=== PATIENT | female | born 1950 | race Caucasian/White ===

== ENCOUNTER 2022-12-16 13:36 | Inpatient (IN) | payer MEDICARE, OTHER ==
[~2022-12-16] VITALS: Ht 165.1 cm; Wt 35.4 kg
--- NOTE | 2022-12-16 13:40 | NUR ---
RECIEVED pt 72 yrs female transfer from [facility] and refused to eat
--- NOTE | 2022-12-16 14:10 | NUR ---
inserted ango catheter g 16 on lt upper arm blood drow and sent to lab
--- NOTE | 2022-12-16 14:23 | NUR ---
submitted move sheet
[2022-12-16] MEDS ORDERED: DONE5TAB34 PO (14:25)
[2022-12-16] MEDS ORDERED: BENZ1TAB7 PO (14:25)
[2022-12-16] MEDS ORDERED: MAGN400O6 PO (14:25)
[2022-12-16] MEDS ORDERED: ACET-868 PO (14:25)
[2022-12-16] MEDS ORDERED: CHOL100043 PO (14:25)
[2022-12-16] MEDS ORDERED: CARB1TAB21 PO (14:25)
[2022-12-16] MEDS ORDERED: THIA100T74 PO (14:25)
[2022-12-16] MEDS ORDERED: RISP0.2515 PO (14:25)
[2022-12-16] MEDS ORDERED: TRIA15OI2 TP (14:25)
[2022-12-16] MEDS ORDERED: DOCU-141 PO (14:25)
[2022-12-16] MEDS ORDERED: MULT-447 PO (14:25)
[2022-12-16] MEDS ORDERED: CLON0.1T PO (14:25)
[2022-12-16] MEDS ORDERED: AMIN30LI2 PO (14:25)
[2022-12-16] MEDS ORDERED: NA P133E RC (14:25)
[2022-12-16] MEDS ORDERED: BISA10SU11 RC (14:25)
--- NOTE | 2022-12-16 14:25 | NUR ---
COVED SWAB SENT TO LAB
--- NOTE | 2022-12-16 14:36 | NUR ---
PAGED EPIC [employer] FORM
[2022-12-16 14:43] LABS: BASOPHILS # (AUTO) 0.1 K/uL (0.0-0.2); BASOPHILS % (AUTO) 0.8 % (0.0-2.0); EOSINOPHILS % (AUTO) 1.8 % (0.0-6.0); HEMATOCRIT 30 % (33-45); HEMOGLOBIN 9.2 g/dL (11.5-14.8); LYMPHOCYTES # (AUTO) 2.1 K/uL (0.8-4.8); LYMPHOCYTES % (AUTO) 31.2 % (20.0-44.0); MEAN CORPUSCULAR HGB CONC 31 g/dl (31.0-36.0); MEAN CORPUSCULAR VOLUME 71 fL (82-100); MONOCYTES # (AUTO) 0.5 K/uL (0.1-1.30); MONOCYTES % (AUTO) 7.6 % (2.0-12.0); NEUTROPHILS # (AUTO) 3.9 K/uL (1.8-8.9); NEUTROPHILS % (AUTO) 58.6 % (43.0-81.0); PLATELET COUNT (AUTO) 564 K/uL (150-450); RED BLOOD CELL COUNT(AUTO) 4.15 MIL/uL (4.0-5.2); WHITE BLOOD COUNT (AUTO) 6.7 K/uL (4.3-11.0)
[2022-12-16 14:46] LABS: CALCIUM, SERUM 8.4 mg/dL (8.5-10.1); CARBON DIOXIDE 27 mmol/L (21-32); CHLORIDE 104 mmol/L (98-107); CREATININE 0.5 mg/dL (0.6-1.3); GLUCOSE 117 mg/dL (74-106); POTASSIUM 3.6 mmol/L (3.5-5.1); SODIUM SERUM 139 mmol/L (136-145); UREA NITROGEN, BLOOD 17 mg/dL (7-18)
--- NOTE | 2022-12-16 15:22 | NUR ---
RESTING AND COMFORTABLE AT THIS TIME
--- NOTE | 2022-12-16 16:04 | NUR ---
PAGED [employer]
[2022-12-16 16:13] LABS: LYMPHOCYTES % (MANUAL) 26 % (16-48); MONOCYTES % (MANUAL) 7 % (0-11.0); NEUTROPHILS % (MANUAL) 67 (42-76)
--- NOTE | 2022-12-16 16:38 | NUR ---
Wating for medICALE floor bed
--- NOTE | 2022-12-16 16:46 | NUR ---
ROOM 309-2
--- NOTE | 2022-12-16 16:50 | NUR ---
REPORT GIVEN TO NURSE JESUS FOR GINA
[2022-12-16] MEDS ORDERED: ONDANSETRON HCL/PF 4 MG/2 ML VIAL IVP PRN (17:30)
[2022-12-16] MEDS: ENOXAPARIN SODIUM 40 MG/0.4 ML DISP.SYRIN SQ SCH (17:30)
[2022-12-16] MEDS ORDERED: HYDROCODONE/APAP 5/325MG TABLET PO PRN (17:30)
[2022-12-16] MEDS ORDERED: IV NS 0.9% 1,000 ML IV PRN (17:30)
[2022-12-16] MEDS ORDERED: MAG HYDROX/AL HYDROX/SIMETH 30 ML UDC PO PRN (17:30)
[2022-12-16] MEDS ORDERED: MAGNESIUM HYDROXIDE 30 ML UDC PO PRN (17:30)
[2022-12-16] MEDS ORDERED: ACETAMINOPHEN 325 MG TABLET PO PRN (17:30)
[2022-12-16] MEDS ORDERED: Z GUARD REMEDY 4 OZ OINT TP PRN (17:30)
[2022-12-16 17:33] LABS: IRON, SERUM 17 ug/dl (50-175); TOTAL IRON BINDING CAPACITY 276 ug/dl (250-450)
--- NOTE | 2022-12-16 19:16 | NUR ---
RN MS ADMISSION NOTES RECEIVED PATIENT FROM ER [facility] , ROOM AIR WITH NO SOB OR DISTRESS NOTED , NO C/O OF PAIN AND DISCOMFORT AT T HIS TIME , FROM SNF AND C/C OF POOR ORAL INTAKE AND REFUSING TO TAKE MEDS , UPON ASSESSMENT , PATIENT IS A/O X4 , VERBALLY RESPONSIVE , KEPT COMFORTABLE TO BED . OFFERED FOR V/S AND REFUSED ,IV ACCESS ON FAM G 20 PATENT AND INTACT , BODY ASSESSMENT PER PROTOCOL OFFERED AND PATIENT REFUSED , SEEN BY DR TAMMY PEDRAZA AND WITH NEW ORDERS , DUE MEDS OF LOVENOX OFFERED BUT REFUSED , SAFETY MEASURES PROVIDED AND SR UP X2 , CALL LIGHT WITHIN REACH
--- NOTE | 2022-12-16 19:30 | NUR ---
MS RN OPENING NOTE RECEIVED PATIENT FROM AM NURSE; PATIENT IN BED, A/O X 4, VERBALLY RESPONSIVE; STABLE ON ROOM AIR, BREATHING EVENLY AND NO S/S OF DISTRESS NOTED; ENDORSED PATIENT REFUSING ALL MEDS AND REFUSED VITAL SIGNS AND SKIN ASSESSMENT; WITH IV ACCESS AT FAM G#20; NO COMPLAINTS OF PAIN AND DISCOMFORT; SAFETY MEASURES IMPLEMENTED, BED LOCKED IN LOWEST POSITION, SIDE RAILS UP X 4, CALL LIGHT AND TABLE WITHIN REACH; WILL CONTINUE TO MONITOR THROUGHOUT SHIFT
--- NOTE | 2022-12-16 22:00 | NUR ---
MS RN NOTE OFFERED TO PROVIDE LEG SLEEVES FOR DVT PUMPS BUT PATIENT REFUSED DESPITE EXPLAINING THE IMPORTANCE OF SUCH
[2022-12-17 04:06] VITALS: BP 114/56
[2022-12-17 05:56] LABS: BASOPHILS # (AUTO) 0.1 K/uL (0.0-0.2); BASOPHILS % (AUTO) 0.9 % (0.0-2.0); EOSINOPHILS % (AUTO) 3.1 % (0.0-6.0); HEMATOCRIT 28 % (33-45); HEMOGLOBIN 8.8 g/dL (11.5-14.8); LYMPHOCYTES # (AUTO) 2.4 K/uL (0.8-4.8); LYMPHOCYTES % (AUTO) 39.9 % (20.0-44.0); MEAN CORPUSCULAR HGB CONC 31 g/dl (31.0-36.0); MEAN CORPUSCULAR VOLUME 72 fL (82-100); MONOCYTES # (AUTO) 0.4 K/uL (0.1-1.30); MONOCYTES % (AUTO) 7.1 % (2.0-12.0); NEUTROPHILS # (AUTO) 2.9 K/uL (1.8-8.9); PLATELET COUNT (AUTO) 571 K/uL (150-450); RED BLOOD CELL COUNT(AUTO) 3.97 MIL/uL (4.0-5.2)
[2022-12-17 06:14] LABS: CALCIUM, SERUM 8.6 mg/dL (8.5-10.1); CARBON DIOXIDE 25 mmol/L (21-32); CHLORIDE 107 mmol/L (98-107); CHOLESTEROL 140 mg/dL (<200); CREATININE 0.4 mg/dL (0.6-1.3); GLUCOSE 83 mg/dL (74-106); HDL CHOLESTEROL 42 mg/dL (40-60); LDL 88 mg/dL (0-99); MAGNESIUM 2.1 mg/dL (1.8-2.4); PHOSPHORUS 3.4 mg/dL (2.5-4.9); POTASSIUM 3.6 mmol/L (3.5-5.1); SODIUM SERUM 138 mmol/L (136-145); THYROID STIMULATING HORMONE 0.222 uIU/mL (0.358-3.74); TRIGLYCERIDES 73 mg/dL (30-150); UREA NITROGEN, BLOOD 13 mg/dL (7-18)
--- NOTE | 2022-12-17 06:51 | NUR ---
MS RN CLOSING NOTE PATIENT IN BED, A/O X 4, VERBALLY RESPONSIVE; STABLE ON ROOM AIR, BREATHING EVENLY AND NO S/S OF DISTRESS NOTED; PATIENT REFUSING STILL REFUSING SKIN ASSESSMENT BUT WAS ABLE TO TAKE VITAL SIGNS; WITH IV ACCESS AT FAM G#20. INTACT AND PATENT BUT REFUSED TO HOOK THE IV FLUIDS; NO COMPLAINTS OF PAIN AND DISCOMFORT; PATIENT'S NEEDS ATTENDED; MONITORED PATIENT ACCORDINGLY; SAFETY MEASURES IMPLEMENTED, BED LOCKED IN LOWEST POSITION, SIDE RAILS UP X 4, CALL LIGHT AND TABLE WITHIN REACH; WILL ENDORSE TO AM NURSE FOR GINA.
[2022-12-17] MEDS: PANTOPRAZOLE 40 MG TABLET.DR PO SCH ×2 (07:30→07:58)
--- NOTE | 2022-12-17 07:35 | NUR ---
MS RN OPENING NOTE RECEIVED PATIENT IN BED, A/O X 4, VERBALLY RESPONSIVE; ROOM AIR, WITH NO SOB OR DISTRESS NOTED ; NO C/O OF PAIN AND DISCOMFORT ; WITH IV ACCESS AT FAM G#20; NO COMPLAINTS OF PAIN AND DISCOMFORT; SAFETY MEASURES IMPLEMENTED, BED LOCKED IN LOWEST POSITION, SIDE RAILS UP X 4, CALL LIGHT AND TABLE WITHIN REACH; WILL CONTINUE TO MONITOR FOR ANY CHANGES
[2022-12-17 08:00] VITALS: BP 107/66
[2022-12-17 16:00] VITALS: BP 112/61
[2022-12-17] MEDS: ENOXAPARIN SODIUM 40 MG/0.4 ML DISP.SYRIN SQ SCH (17:30)
--- NOTE | 2022-12-17 18:54 | NUR ---
MS RN CLOSING NOTE PATIENT IN BED, A/O X 4, VERBALLY RESPONSIVE; ROOM AIR, WITH NO SOB OR DISTRESS NOTED ; NO C/O OF PAIN AND DISCOMFORT ; WITH IV ACCESS AT FAM G#20; NO COMPLAINTS OF PAIN AND DISCOMFORT; REFUSED MEDICATIONS , IV AND REQUESTED TO COLLECT URINE AND SHE DOESNT WANT TO , SAFETY MEASURES IMPLEMENTED, BED LOCKED IN LOWEST POSITION, SIDE RAILS UP X 4, CALL LIGHT AND TABLE WITHIN REACH; ENDORSED TO NEXT SHIFT
--- NOTE | 2022-12-17 19:00 | NUR ---
RN OPENING NOTE RECEIVED PT AWAKE IN BED. PT IS A/O X 4, ABLE TO MAKE NEEDS KNOWN. PT IS IN RA, TOLERATING WELL, BREATHING EVEN AND UNLABORED @ THIS TIME. PT IV PRESENT IN ON LEFT UPPER ARM #18G, PATENT , INTACT AND FLUSHES WELL W/ NO S & SX OF INFILTRATION @ SITE NOTED. SAFETY MEASURE IN PLACE. BED IN LOWEST AND LOCKED POSITION. SIDE RAILS UP X 2. BEDSIDE TABLE AND CALL LIGHT IS WITHIN REACH. BED ALARM IS ON. WILL CONTINUE TO MONITOR PT ACCORDINGLY.
[2022-12-17 20:00] VITALS: BP 111/67
[2022-12-18 05:57] LABS: BASOPHILS # (AUTO) 0.1 K/uL (0.0-0.2); BASOPHILS % (AUTO) 1.1 % (0.0-2.0); EOSINOPHILS % (AUTO) 2.7 % (0.0-6.0); HEMATOCRIT 28 % (33-45); HEMOGLOBIN 8.7 g/dL (11.5-14.8); LYMPHOCYTES # (AUTO) 2.5 K/uL (0.8-4.8); LYMPHOCYTES % (AUTO) 40.2 % (20.0-44.0); MEAN CORPUSCULAR HGB CONC 31 g/dl (31.0-36.0); MEAN CORPUSCULAR VOLUME 72 fL (82-100); MONOCYTES # (AUTO) 0.5 K/uL (0.1-1.30); MONOCYTES % (AUTO) 7.5 % (2.0-12.0); NEUTROPHILS % (AUTO) 48.5 % (43.0-81.0); PLATELET COUNT (AUTO) 579 K/uL (150-450); RED BLOOD CELL COUNT(AUTO) 3.91 MIL/uL (4.0-5.2); WHITE BLOOD COUNT (AUTO) 6.3 K/uL (4.3-11.0)
[2022-12-18 06:16] LABS: ALANINE AMINOTRANSFERASE 8 U/L (12-78); ALKALINE PHOSPHATASE 124 U/L (46-116); ASPARTATE AMINOTRANSFERASE 8 U/L (15-37); BILIRUBIN,TOTAL 0.2 mg/dL (0.2-1.0); CALCIUM, SERUM 8.4 mg/dL (8.5-10.1); CARBON DIOXIDE 24 mmol/L (21-32); CHLORIDE 107 mmol/L (98-107); CREATININE 0.5 mg/dL (0.6-1.3); GLUCOSE 83 mg/dL (74-106); PHOSPHORUS 3.4 mg/dL (2.5-4.9); POTASSIUM 3.5 mmol/L (3.5-5.1); SODIUM SERUM 139 mmol/L (136-145); TOTAL PROTEIN, SERUM 6.3 g/dL (6.4-8.2); UREA NITROGEN, BLOOD 16 mg/dL (7-18)
--- NOTE | 2022-12-18 06:46 | NUR ---
RN CLOSING NOTE PT AWAKE AND RESTING COMFORTABLY IN BED. PT IS A/O X 4, RESPONSIVE. PT IS IN RA, W/ NO S &SX OF RESPIRATORY DISTRESS NOTED @ THIS TIME. PT IV PRESENT IN ON LEFT UPPER ARM #18G, PATENT , INTACT AND FLUSHES WELL W/ NO S & SX OF INFILTRATION @ SITE NOTED. SAFETY MEASURE IN PLACE. BED IN LOWEST AND LOCKED POSITION. SIDE RAILS UP X 2. BEDSIDE TABLE AND CALL LIGHT IS WITHIN REACH. BED ALARM IS ON. WILL ENDORSE TO THE NEXT SHIFT FOR GINA.
--- NOTE | 2022-12-18 07:00 | NUR ---
MS RN OPENING NOTE RECEIVED PATIENT IN BED, A/O X 3, ABLE TO MAKE NEEDS KNOWN, ON ROOM AIR AND TOLERATING WELL, NO SOB OR DISTRESS NOTED. PT DENIES PAIN AT THIS TIME. WITH IV ACCESS AT FAM G#18 PATENT, INTACT AND SALINE LOCKED. SAFETY MEASURES IMPLEMENTED, BED LOCKED IN LOWEST POSITION, SIDE RAILS UP X 3, CALL LIGHT AND TABLE WITHIN REACH; WILL CONTINUE TO MONITOR FOR ANY SIGNIFICANT CHANGES.
[2022-12-18] MEDS: PANTOPRAZOLE 40 MG TABLET.DR PO SCH (07:23)
[2022-12-18 08:00] VITALS: BP 113/61
--- NOTE | 2022-12-18 15:40 | NUR ---
RN NOTES: UNABLE TO GET UA SAMPLE. PT AGITATED.
[2022-12-18 16:00] VITALS: BP 131/72
[2022-12-18] MEDS: ENOXAPARIN SODIUM 40 MG/0.4 ML DISP.SYRIN SQ SCH (17:29)
--- NOTE | 2022-12-18 18:41 | NUR ---
MS RN CLOSING NOTE PATIENT IN BED, A/O X 3, ABLE TO MAKE NEEDS KNOWN, ON ROOM AIR AND TOLERATING WELL, NO SOB OR DISTRESS NOTED. PT DENIES PAIN AT THIS TIME. WITH IV ACCESS AT FAM G#18 PATENT, INTACT AND SALINE LOCKED. RESIDENT REFUSED MEDS AND PROCEDURES. PATIENT ATE HER MEALS 100% IN OUR SHIFT. SAFETY MEASURES IMPLEMENTED, BED LOCKED IN LOWEST POSITION, SIDE RAILS UP X 3, CALL LIGHT AND TABLE WITHIN REACH; WILL CONTINUE TO MONITOR FOR ANY SIGNIFICANT CHANGES. WILL ENDORSED TO AWNING HANGER RN FOR CONTINUITY OF CARE.
--- NOTE | 2022-12-18 19:00 | NUR ---
RN OPENING NOTE RECEIVED PT ASLEEP IN BED. PT A/O X 4, ABLE TO MAKE NEEDS KNOWN. PT IS IN RA TOLERATING WELL, BREATHING EVEN AND UNLABORED @ THIS TIME. PT IV IS ON LEFT UPPER ARM, PATENT, INTACT AND FLUSHES WELL W/ NO S & SX OF INFILTRATION @ SITE NOTED. SAFETY MEASURE IS IN PLACE. BED IS IN LOWEST & LOCKED POSITION. SIDE RAILS X 4. BEDSIDE TABLE AND CALL LIGHT IS EASY REACH. BED ALARM IS ON. WILL CONTINUE TO MONITOR PT ACCORDINGLY.
[2022-12-18 20:00] VITALS: BP 104/46
[2022-12-18 20:05] VITALS: BP 162/80
[2022-12-18 20:55] VITALS: BP 104/46
--- NOTE | 2022-12-19 06:54 | NUR ---
RN CLOSING NOTE PT ASLEEP & RESTING COMFORTABLY IN BED. PT A/O X 4, RESPONSIVE. PT IS IN RA W/ NO S & SX OF RESPIRATORY DISTRESS NOTED @ THIS TIME. PT IV IS ON LEFT UPPER ARM, PATENT, INTACT AND FLUSHES WELL W/ NO S & SX OF INFILTRATION @ SITE NOTED. SAFETY MEASURE IS IN PLACE. BED IS IN LOWEST & LOCKED POSITION. SIDE RAILS X 2. BEDSIDE TABLE AND CALL LIGHT IS EASY REACH. BED ALARM IS ON. WILL ENDORSE PT TO THE NEXT SHIFT FOR GINA.
[2022-12-19] MEDS: PANTOPRAZOLE 40 MG TABLET.DR PO SCH (07:30)
[2022-12-19 08:00] VITALS: BP 117/62
[2022-12-19] MEDS: ENSURE ENLIVE 237 ML LIQUID (VANILLA) PO SCH ×2 (09:42→12:05)
--- NOTE | 2022-12-19 15:22 | NUR ---
APARTMENT GROUNDSKEEPER NOTES: [facility]PT AA/O X 2-3 WITH CONFUSION. NO SOB OR CARDIAC DISTRESS NOTED. DC PACKET GIVEN TO EMT. BELONGINGS ONLY CLOTHES AND PT'S WEARING IT. SKIN ISSUES NOTED AND FILED TO PT'S CHART. IV ACCESS REMOVED. IDENTIFICATION BAND IN PLACE. REPORT GIVEN TO LAISHA BECK. PT LEFT THE UNIT STABLE.
== END 2022-12-19 15:22 | DRG 887 ==
LOC: ER 13:45 → MED 17:01
DX: F50.9 Eating disorder, unspecified (principal); F02.84 Dementia in other diseases classified elsewhere, unspecified severity, with anxiety; F03.93 Unspecified dementia, unspecified severity, with mood disturbance; F03.918 Unspecified dementia, unspecified severity, with other behavioral disturbance; Z68.1 Body mass index [BMI] 19.9 or less, adult; R62.7 Adult failure to thrive; G20 Parkinson's disease; D50.9 Iron deficiency anemia, unspecified; I10 Essential (primary) hypertension; Z20.822 Contact with and (suspected) exposure to COVID-19; F25.9 Schizoaffective disorder, unspecified; Z88.5 Allergy status to narcotic agent; F39 Unspecified mood [affective] disorder; F29 Unspecified psychosis not due to a substance or known physiological condition; Z86.59 Personal history of other mental and behavioral disorders
CPT/HCPCS: 36415; 80048-TC; 80053-TC; 80061-TC; 83540-TC; 83735-TC; 84100-TC; 84443-TC; 85025-TC; 87081-TC; A4223; C9803; G0378; J7030